=== PATIENT | female | born 1970 | race Caucasian/White ===

== ENCOUNTER 2020-06-22 05:55 | Day surgery (SDC) | payer BC ==
[2020-06-22] MEDS ORDERED: Dextrose 5%-Lactated Ringers 1,000 ML IV SCH (06:30)
[2020-06-22] MEDS ORDERED: Propofol 200 MG/20 ML SDV ONE ×2 (07:06→07:46)
[2020-06-22] MEDS ORDERED: fentaNYL 100 MCG/2 ML SDV ONE (07:06)
[2020-06-22] MEDS ORDERED: Midazolam 1 MG/ML 2 ML SDV ONE (07:06)
--- NOTE | 2020-07-03 16:38 | OR ---
DATE OF PROCEDURE: 06/22/2020 SURGEON: Benjamin Reed MD PREOPERATIVE DIAGNOSIS: Positive Cologuard test. POSTOPERATIVE DIAGNOSES: 1. Positive Cologuard test. 2. Single polyp within distal sigmoid colon. 3. Uncomplicated left colonic diverticulosis. OPERATIVE PROCEDURE: Flexible colonoscopy with polypectomy by snare technique. ANESTHESIA: IV sedation. INDICATIONS FOR PROCEDURE: This is a 49-year-old female presenting with a positive Cologuard test. She has no personal or family history of colon neoplasia. Plan is to proceed with a colonoscopy with biopsies and/or polypectomy as indicated. Potential risks including bleeding and perforation were discussed and the patient wishes to proceed. DETAILS OF PROCEDURE: The patient was taken to the operating room and placed in a left lateral decubitus position. IV sedation was administered, after which the initial digital rectal exam was performed and was unremarkable. Colonoscope was passed into the rectum with retroflexion revealing uncomplicated hemorrhoidal columns. Scope was eventually passed to the level of the cecum. The prep was fairly good. Only small amount of liquid stool was present to that level. The patient had some left colonic diverticula, which was otherwise uncomplicated. There were no areas of colitis. A single polyp was located in the distal sigmoid colon. This measured around 3 mm and was removed by means of cautery and snare technique and sent for histologic evaluation. No additional polyps or other signs of neoplasia were seen and the procedure then concluded. The prep was overall quite good with only small amount of liquid stool present. Assuming that the removed polyp is adenomatous to some extent, a repeat colonoscopy in 3 years would be warranted. Benjamin Reed MD /[id number]
== END 2020-06-22 09:22 | disposition home or self-care (01) ==
LOC: JP.SDS 05:55
PROVIDERS: ATTEND Surgery
DX: K63.5 Polyp of colon (principal); K57.30 Diverticulosis of large intestine without perforation or abscess without bleeding; K64.9 Unspecified hemorrhoids
CPT/HCPCS: 45385; 88305; J2250; J2704; J3010; J7121